=== PATIENT | female | born 1970 | race Caucasian/White ===

== ENCOUNTER 2023-04-28 01:51 | Outpatient (RCR) | payer BC, SELFPAY ==
[2023-04-28 08:36] LABS: Abs Immature Grans 0.01 10^3/uL (0.0-0.06); Absolute Basophil Count 0.04 10^3/uL (0.0-0.2); Absolute Eosinophil Count 0.08 10^3/uL (0.0-0.7); Absolute Lymphocyte Count 2.18 10^3/uL (1.2-3.4); Absolute Neutrophil Count 2.63 10^3/uL (1.2-6.7); Basophils % 0.7; Eosinophils % 1.5; HCT 36.3 % (36.0-46.0); HGB 12.5 g/dL (11.2-15.7); Immature Grans % 0.2; Lymphocytes % 40.8; MCH 31.2 pg (27.0-33.0); MCHC 34.4 % (32.0-36.0); MCV 91 fL (80-95); MPV 10.1 fL (8.0-11.0); Monocytes % 7.5; Neutrophils % 49.3; Platelet Count 224 10^3/uL (130-400); RBC 4.01 10^6/uL (3.93-5.22); RDW-SD 43.4 fL; WBC 5.34 10^3/uL (4.4-10.8)
[2023-04-28 08:51] LABS: ALT 19 U/L (14-59); AST 15 U/L (15-37); Albumin 3.9 g/dL (3.4-5.0); Alkaline Phosphatase 54 U/L (46-116); Anion Gap 7.4 mmol/L (3-11); BUN 5 mg/dL (7-18); Bilirubin, Total 0.5 mg/dL (0.2-1.0); CO2 28.6 mmol/L (21.0-32.0); CREATININE 0.7 mg/dL (0.55-1.02); Calcium 9.3 mg/dL (8.5-10.1); Chloride 102 mmol/L (98-107); Glucose 96 mg/dL (74-106); Potassium 3.9 mmol/L (3.5-5.1); Sodium 138 mmol/L (136-145); Total Protein 7.5 g/dL (6.4-8.2)
[2023-04-28] MEDS: Normal Saline Flush 10 ML SYR IVP (09:26)
[2023-04-30 11:32] LABS: Cancer Ag 15-3 <8.0 U/mL (<30)
== END 2023-05-03 23:59 | disposition home or self-care (01) ==
LOC: INF 01:51
PROVIDERS: PCP Naturopath; Visit Provider Internal Medicine Hematology & Oncology
DX: C50.912 Malignant neoplasm of unspecified site of left female breast (principal)
CPT/HCPCS: 36591; 80053; 86304; 85025; 86300; 86301

== ENCOUNTER 2023-05-19 03:36 | Outpatient (RCR) | payer BC, SELFPAY ==
[2023-05-19] MEDS: Normal Saline Flush 10 ML SYR IVP (09:29)
[2023-05-19 09:54] LABS: Abs Immature Grans 0.01 10^3/uL (0.0-0.06); Absolute Basophil Count 0.05 10^3/uL (0.0-0.2); Absolute Eosinophil Count 0.04 10^3/uL (0.0-0.7); Absolute Lymphocyte Count 1.79 10^3/uL (1.2-3.4); Absolute Monocyte Count 0.55 10^3/uL (0.1-0.8); Absolute Neutrophil Count 3.49 10^3/uL (1.2-6.7); Basophils % 0.8; Eosinophils % 0.7; HCT 33.8 % (36.0-46.0); HGB 11.4 g/dL (11.2-15.7); Immature Grans % 0.2; Lymphocytes % 30.2; MCH 31.5 pg (27.0-33.0); MCHC 33.7 % (32.0-36.0); MCV 93 fL (80-95); MPV 9.5 fL (8.0-11.0); Monocytes % 9.3; Neutrophils % 58.8; Platelet Count 326 10^3/uL (130-400); RBC 3.62 10^6/uL (3.93-5.22); RDW 13.6 % (11.7-14.6); RDW-SD 46.2 fL; WBC 5.93 10^3/uL (4.4-10.8)
[2023-05-19 10:19] LABS: ALT 28 U/L (14-59); AST 20 U/L (15-37); Albumin 3.7 g/dL (3.4-5.0); Alkaline Phosphatase 72 U/L (46-116); Anion Gap 6.7 mmol/L (3-11); BUN 8 mg/dL (7-18); Bilirubin, Total 0.5 mg/dL (0.2-1.0); CO2 29.3 mmol/L (21.0-32.0); CREATININE 0.8 mg/dL (0.55-1.02); Calcium 9.3 mg/dL (8.5-10.1); Chloride 103 mmol/L (98-107); Estimated GFR 89.71 (mL/min/1.73m2); Glucose 95 mg/dL (74-106); Potassium 4.1 mmol/L (3.5-5.1); Sodium 139 mmol/L (136-145); Total Protein 7.2 g/dL (6.4-8.2)
[2023-05-20 17:55] LABS: Cancer Ag 15-3 9.8 U/mL (<30)
== END 2023-06-03 23:59 | disposition home or self-care (01) ==
LOC: INF 03:36
PROVIDERS: PCP Naturopath; Visit Provider Internal Medicine Hematology & Oncology
DX: C50.912 Malignant neoplasm of unspecified site of left female breast (principal)
CPT/HCPCS: 36591; 80053; 86300; 85025

== ENCOUNTER 2023-06-30 03:07 | Outpatient (RCR) | payer BC, SELFPAY ==
[2023-06-09] MEDS: Normal Saline Flush 10 ML SYR IVP (09:29)
[2023-06-09 09:32] LABS: Abs Immature Grans 0.01 10^3/uL (0.0-0.06); Absolute Basophil Count 0.04 10^3/uL (0.0-0.2); Absolute Eosinophil Count 0.03 10^3/uL (0.0-0.7); Absolute Monocyte Count 0.46 10^3/uL (0.1-0.8); Absolute Neutrophil Count 3.39 10^3/uL (1.2-6.7); Basophils % 0.8; Eosinophils % 0.6; HCT 30.7 % (36.0-46.0); HGB 10.6 g/dL (11.2-15.7); Immature Grans % 0.2; Lymphocytes % 26.3; MCH 32.5 pg (27.0-33.0); MCHC 34.5 % (32.0-36.0); MCV 94 fL (80-95); MPV 9.3 fL (8.0-11.0); Monocytes % 8.6; Neutrophils % 63.5; Platelet Count 216 10^3/uL (130-400); RBC 3.26 10^6/uL (3.93-5.22); RDW 14.1 % (11.7-14.6); RDW-SD 48.6 fL; WBC 5.33 10^3/uL (4.4-10.8)
[2023-06-09 09:47] LABS: ALT 27 U/L (14-59); AST 16 U/L (15-37); Albumin 3.5 g/dL (3.4-5.0); Alkaline Phosphatase 74 U/L (46-116); Anion Gap 2.4 mmol/L (3-11); BUN 9 mg/dL (7-18); Bilirubin, Total 0.4 mg/dL (0.2-1.0); CO2 29.6 mmol/L (21.0-32.0); CREATININE 0.7 mg/dL (0.55-1.02); Calcium 8.8 mg/dL (8.5-10.1); Chloride 104 mmol/L (98-107); Glucose 94 mg/dL (74-106); Potassium 3.9 mmol/L (3.5-5.1); Sodium 136 mmol/L (136-145); Total Protein 6.9 g/dL (6.4-8.2)
[2023-06-16 09:50] LABS: Cancer Ag 15-3 11 U/mL (<30)
[2023-06-30] MEDS: Normal Saline Flush 10 ML SYR IVP (08:10)
[2023-06-30 08:51] LABS: Abs Immature Grans 0.01 10^3/uL (0.0-0.06); Absolute Basophil Count 0.03 10^3/uL (0.0-0.2); Absolute Eosinophil Count 0.01 10^3/uL (0.0-0.7); Absolute Lymphocyte Count 1.53 10^3/uL (1.2-3.4); Absolute Monocyte Count 0.51 10^3/uL (0.1-0.8); Absolute Neutrophil Count 2.32 10^3/uL (1.2-6.7); Basophils % 0.7; Eosinophils % 0.2; HCT 31.6 % (36.0-46.0); HGB 10.8 g/dL (11.2-15.7); Immature Grans % 0.2; Lymphocytes % 34.7; MCH 32.8 pg (27.0-33.0); MCHC 34.2 % (32.0-36.0); MCV 96 fL (80-95); MPV 9.7 fL (8.0-11.0); Monocytes % 11.6; Neutrophils % 52.6; Platelet Count 211 10^3/uL (130-400); RBC 3.29 10^6/uL (3.93-5.22); RDW 14.5 % (11.7-14.6); WBC 4.41 10^3/uL (4.4-10.8)
[2023-06-30 09:06] LABS: ALT 31 U/L (14-59); AST 18 U/L (15-37); Albumin 3.5 g/dL (3.4-5.0); Alkaline Phosphatase 79 U/L (46-116); Anion Gap 8.4 mmol/L (3-11); BUN 9 mg/dL (7-18); Bilirubin, Total 0.4 mg/dL (0.2-1.0); CO2 27.6 mmol/L (21.0-32.0); CREATININE 0.7 mg/dL (0.55-1.02); Calcium 8.6 mg/dL (8.5-10.1); Chloride 104 mmol/L (98-107); Glucose 90 mg/dL (74-106); Potassium 3.9 mmol/L (3.5-5.1); Sodium 140 mmol/L (136-145); Total Protein 6.7 g/dL (6.4-8.2)
[2023-07-01 17:15] LABS: Cancer Ag 15-3 12 U/mL (<30)
== END 2023-07-02 23:59 | disposition home or self-care (01) ==
LOC: INF 03:07
PROVIDERS: PCP Naturopath; Visit Provider Internal Medicine Hematology & Oncology
DX: C50.912 Malignant neoplasm of unspecified site of left female breast (principal); Z45.2 Encounter for adjustment and management of vascular access device
CPT/HCPCS: 36591; 80053; 86300; 85025

== ENCOUNTER 2023-07-21 04:29 | Outpatient (RCR) | payer BC, SELFPAY ==
[2023-07-21] MEDS: Normal Saline Flush 10 ML SYR IVP (08:40)
[2023-07-21 08:52] LABS: Abs Immature Grans 0.01 10^3/uL (0.0-0.06); Absolute Basophil Count 0.02 10^3/uL (0.0-0.2); Absolute Eosinophil Count 0.01 10^3/uL (0.0-0.7); Absolute Lymphocyte Count 1.63 10^3/uL (1.2-3.4); Absolute Monocyte Count 0.52 10^3/uL (0.1-0.8); Absolute Neutrophil Count 1.94 10^3/uL (1.2-6.7); Basophils % 0.5; Eosinophils % 0.2; HCT 32.7 % (36.0-46.0); Immature Grans % 0.2; Lymphocytes % 39.5; MCH 33.2 pg (27.0-33.0); MCHC 33.6 % (32.0-36.0); MCV 99 fL (80-95); MPV 9.2 fL (8.0-11.0); Monocytes % 12.6; Platelet Count 183 10^3/uL (130-400); RBC 3.31 10^6/uL (3.93-5.22); RDW 14.1 % (11.7-14.6); RDW-SD 51.7 fL; WBC 4.13 10^3/uL (4.4-10.8)
[2023-07-21 09:07] LABS: ALT 34 U/L (14-59); AST 20 U/L (15-37); Albumin 3.6 g/dL (3.4-5.0); Alkaline Phosphatase 81 U/L (46-116); Anion Gap 8.1 mmol/L (3-11); BUN 9 mg/dL (7-18); Bilirubin, Total 0.5 mg/dL (0.2-1.0); CO2 27.9 mmol/L (21.0-32.0); CREATININE 0.7 mg/dL (0.55-1.02); Calcium 8.7 mg/dL (8.5-10.1); Chloride 103 mmol/L (98-107); Glucose 87 mg/dL (74-106); Sodium 139 mmol/L (136-145); Total Protein 6.8 g/dL (6.4-8.2)
[2023-07-22 18:22] LABS: Cancer Ag 15-3 14 U/mL (<30)
== END 2023-08-02 23:59 | disposition home or self-care (01) ==
LOC: INF 04:29
PROVIDERS: PCP Naturopath; Visit Provider Internal Medicine Hematology & Oncology
DX: C50.919 Malignant neoplasm of unspecified site of unspecified female breast (principal); Z45.2 Encounter for adjustment and management of vascular access device
CPT/HCPCS: 36591; 80053; 86300; 85025

== ENCOUNTER 2023-08-11 04:31 | Outpatient (RCR) | payer BC, SELFPAY ==
[2023-08-11] MEDS: Normal Saline Flush 10 ML SYR IVP (08:55)
[2023-08-11 09:03] LABS: Abs Immature Grans 0.01 10^3/uL (0.0-0.06); Absolute Basophil Count 0.03 10^3/uL (0.0-0.2); Absolute Eosinophil Count 0.01 10^3/uL (0.0-0.7); Absolute Lymphocyte Count 1.35 10^3/uL (1.2-3.4); Absolute Monocyte Count 0.44 10^3/uL (0.1-0.8); Absolute Neutrophil Count 1.47 10^3/uL (1.2-6.7); Basophils % 0.9; Eosinophils % 0.3; HCT 30.3 % (36.0-46.0); HGB 10.3 g/dL (11.2-15.7); Immature Grans % 0.3; Lymphocytes % 40.8; MCH 33.9 pg (27.0-33.0); MCV 100 fL (80-95); MPV 9.2 fL (8.0-11.0); Monocytes % 13.3; Neutrophils % 44.4; Platelet Count 158 10^3/uL (130-400); RBC 3.04 10^6/uL (3.93-5.22); RDW 14.1 % (11.7-14.6); RDW-SD 51.7 fL; WBC 3.31 10^3/uL (4.4-10.8)
[2023-08-11 09:23] LABS: ALT 44 U/L (14-59); AST 26 U/L (15-37); Albumin 3.4 g/dL (3.4-5.0); Alkaline Phosphatase 66 U/L (46-116); Anion Gap 7.3 mmol/L (3-11); BUN 7 mg/dL (7-18); Bilirubin, Total 0.3 mg/dL (0.2-1.0); CO2 27.7 mmol/L (21.0-32.0); CREATININE 0.7 mg/dL (0.55-1.02); Calcium 8.5 mg/dL (8.5-10.1); Chloride 104 mmol/L (98-107); Glucose 87 mg/dL (74-106); Potassium 3.8 mmol/L (3.5-5.1); Sodium 139 mmol/L (136-145); Total Protein 6.5 g/dL (6.4-8.2)
[2023-08-12 16:36] LABS: Cancer Ag 15-3 11 U/mL (<30)
== END 2023-09-01 23:59 | disposition home or self-care (01) ==
LOC: INF 04:31
PROVIDERS: PCP Naturopath; Visit Provider Internal Medicine Hematology & Oncology
DX: C50.919 Malignant neoplasm of unspecified site of unspecified female breast (principal)
CPT/HCPCS: 36591; 80053; 86300; 85025

== ENCOUNTER 2023-09-29 01:06 | Outpatient (RCR) | payer BC, SELFPAY ==
[2023-09-29] MEDS: Normal Saline Flush 10 ML SYR IVP (08:38)
[2023-09-29 08:49] LABS: Abs Immature Grans 0.01 10^3/uL (0.0-0.06); Absolute Basophil Count 0.03 10^3/uL (0.0-0.2); Absolute Eosinophil Count 0.12 10^3/uL (0.0-0.7); Absolute Lymphocyte Count 1.93 10^3/uL (1.2-3.4); Absolute Monocyte Count 0.33 10^3/uL (0.1-0.8); Absolute Neutrophil Count 1.71 10^3/uL (1.2-6.7); Basophils % 0.7 %; Eosinophils % 2.9 %; Immature Grans % 0.2 %; Lymphocytes % 46.7 %; MCH 34.5 pg (27.0-33.0); MCHC 34.4 % (32.0-36.0); MCV 100 fL (80-95); MPV 8.9 fL (8.0-11.0); Neutrophils % 41.5 %; Platelet Count 180 10^3/uL (130-400); RBC 3.19 10^6/uL (3.93-5.22); RDW 12.7 % (11.7-14.6); RDW-SD 47.1 fL; WBC 4.13 10^3/uL (4.4-10.8)
[2023-09-29 09:11] LABS: ALT 59 U/L (14-59); AST 28 U/L (15-37); Albumin 3.5 g/dL (3.4-5.0); Alkaline Phosphatase 56 U/L (46-116); Anion Gap 8.1 mmol/L (3-11); BUN 7 mg/dL (7-18); Bilirubin, Total 0.3 mg/dL (0.2-1.0); CO2 26.9 mmol/L (21.0-32.0); CREATININE 0.7 mg/dL (0.55-1.02); Chloride 104 mmol/L (98-107); Estimated GFR 104.65 (mL/min/1.73m2); Glucose 94 mg/dL (74-106); Sodium 139 mmol/L (136-145); Total Protein 6.7 g/dL (6.4-8.2)
[2023-09-29 09:17] LABS: Calcium 8.6 mg/dL (8.5-10.1)
== END 2023-10-02 23:59 | disposition home or self-care (01) ==
LOC: INF 01:06
PROVIDERS: PCP Naturopath; Visit Provider Internal Medicine Hematology & Oncology
DX: C50.919 Malignant neoplasm of unspecified site of unspecified female breast (principal)
CPT/HCPCS: 36591; 80053; 85025

== ENCOUNTER 2023-10-14 11:42 | Outpatient (CLI) | payer BC, SELFPAY ==
[2023-10-14 10:55] LABS: Kit/Specimen SENT
== END 2023-10-14 11:43 | disposition home or self-care (01) ==
LOC: LBO 11:43
PROVIDERS: PCP Naturopath; Visit Provider Naturopath
DX: Z00.00 Encounter for general adult medical examination without abnormal findings (principal)
CPT/HCPCS: 36415

== ENCOUNTER 2023-10-20 04:54 | Outpatient (RCR) | payer BC, SELFPAY ==
[2023-10-20] MEDS: Normal Saline Flush 10 ML SYR IVP (07:55)
[2023-10-20 08:24] LABS: Abs Immature Grans 0.01 10^3/uL (0.0-0.06); Absolute Basophil Count 0.02 10^3/uL (0.0-0.2); Absolute Eosinophil Count 0.09 10^3/uL (0.0-0.7); Absolute Lymphocyte Count 1.41 10^3/uL (1.2-3.4); Absolute Monocyte Count 0.28 10^3/uL (0.1-0.8); Absolute Neutrophil Count 1.56 10^3/uL (1.2-6.7); Basophils % 0.6 %; Eosinophils % 2.7 %; HCT 32.6 % (36.0-46.0); HGB 11.2 g/dL (11.2-15.7); Immature Grans % 0.3 %; Lymphocytes % 41.8 %; MCH 33.8 pg (27.0-33.0); MCHC 34.4 % (32.0-36.0); MCV 99 fL (80-95); MPV 9.7 fL (8.0-11.0); Monocytes % 8.3 %; Neutrophils % 46.3 %; Platelet Count 178 10^3/uL (130-400); RBC 3.31 10^6/uL (3.93-5.22); RDW 12.1 % (11.7-14.6); RDW-SD 44.2 fL; WBC 3.37 10^3/uL (4.4-10.8)
[2023-10-20 08:41] LABS: ALT 41 U/L (14-59); AST 21 U/L (15-37); Albumin 3.5 g/dL (3.4-5.0); Alkaline Phosphatase 50 U/L (46-116); Anion Gap 7.6 mmol/L (3-11); BUN 10 mg/dL (7-18); Bilirubin, Total 0.3 mg/dL (0.2-1.0); CO2 29.4 mmol/L (21.0-32.0); CREATININE 0.7 mg/dL (0.55-1.02); Calcium 8.6 mg/dL (8.5-10.1); Chloride 104 mmol/L (98-107); Estimated GFR 104.65 (mL/min/1.73m2); Glucose 94 mg/dL (74-106); Potassium 3.9 mmol/L (3.5-5.1); Sodium 141 mmol/L (136-145); Total Protein 6.8 g/dL (6.4-8.2)
== END 2023-11-01 23:59 | disposition home or self-care (01) ==
LOC: INF 04:54
PROVIDERS: PCP Naturopath; Visit Provider Internal Medicine Hematology & Oncology
DX: C50.919 Malignant neoplasm of unspecified site of unspecified female breast (principal)
CPT/HCPCS: 36591; 80053; 85025

== ENCOUNTER 2023-12-01 03:06 | Outpatient (RCR) | payer BC, SELFPAY ==
[2023-11-10] MEDS: Normal Saline Flush 10 ML SYR IVP (12:10)
[2023-11-10 12:38] LABS: Abs Immature Grans 0.02 10^3/uL (0.0-0.06); Absolute Basophil Count 0.02 10^3/uL (0.0-0.2); Absolute Monocyte Count 0.41 10^3/uL (0.1-0.8); Basophils % 0.4 %; Eosinophils % 2.2 %; HCT 31.4 % (36.0-46.0); HGB 10.9 g/dL (11.2-15.7); Immature Grans % 0.4 %; Lymphocytes % 28.6 %; MCH 33.3 pg (27.0-33.0); MCHC 34.7 % (32.0-36.0); MCV 96 fL (80-95); MPV 9.1 fL (8.0-11.0); Neutrophils % 59.4 %; Platelet Count 160 10^3/uL (130-400); RBC 3.27 10^6/uL (3.93-5.22); RDW 11.7 % (11.7-14.6); RDW-SD 41.5 fL; WBC 4.55 10^3/uL (4.4-10.8)
[2023-11-10 12:42] LABS: ESR 14 mm/hr (0-30)
[2023-11-10 13:03] LABS: Hemoglobin A1C 5.3 % (<5.7)
[2023-11-10 13:24] LABS: ALT 60 U/L (14-59); AST 28 U/L (15-37); Albumin 3.5 g/dL (3.4-5.0); Alkaline Phosphatase 55 U/L (46-116); BUN 9 mg/dL (7-18); Bilirubin, Total 0.25 mg/dL (0.2-1.0); CREATININE 0.7 mg/dL (0.55-1.02); Calcium 8.7 mg/dL (8.5-10.1); Calculated LDL 97 mg/dL (<100); Chloride 103 mmol/L (98-107); Cholesterol 188 mg/dL (<200); Estimated GFR 104.65 (mL/min/1.73m2); Glucose 109 mg/dL (74-106); HDL Cholesterol 77 mg/dL (40-60); Potassium 3.7 mmol/L (3.5-5.1); Sodium 140 mmol/L (136-145); TSH 0.72 uIU/Ml (0.36-3.74); Total Protein 6.9 g/dL (6.4-8.2); Triglyceride 73 mg/dL (<150); Vitamin B12 552 pg/mL (193-986); Vitamin D 25 Total 48.1 ng/mL (30-100)
[2023-11-10 13:49] LABS: LDH 149 U/L (81-234)
[2023-11-10 22:46] LABS: CRP, High Sensitivity 0.81 mg/L (See Note)
[2023-11-10 23:03] LABS: T3,Free 3.3 pg/mL (2.8-5.3)
[2023-11-11 19:35] LABS: C-Peptide 4.2 ng/mL (1.1 - 4.4)
[2023-11-12 12:03] LABS: Cancer Ag 15-3 <8.0 U/mL (<30)
[2023-12-01] MEDS: Normal Saline Flush 10 ML SYR IVP (08:27)
[2023-12-01 09:01] LABS: Abs Immature Grans 0.01 10^3/uL (0.0-0.06); Absolute Basophil Count 0.02 10^3/uL (0.0-0.2); Absolute Eosinophil Count 0.08 10^3/uL (0.0-0.7); Absolute Lymphocyte Count 1.36 10^3/uL (1.2-3.4); Absolute Monocyte Count 0.34 10^3/uL (0.1-0.8); Absolute Neutrophil Count 1.74 10^3/uL (1.2-6.7); Basophils % 0.6 %; Eosinophils % 2.3 %; HCT 32.1 % (36.0-46.0); Immature Grans % 0.3 %; Lymphocytes % 38.3 %; MCH 32.2 pg (27.0-33.0); MCHC 34.3 % (32.0-36.0); MCV 94 fL (80-95); MPV 9.4 fL (8.0-11.0); Monocytes % 9.6 %; Neutrophils % 48.9 %; Platelet Count 179 10^3/uL (130-400); RBC 3.42 10^6/uL (3.93-5.22); RDW 11.7 % (11.7-14.6); RDW-SD 40.3 fL; WBC 3.55 10^3/uL (4.4-10.8)
[2023-12-01 09:13] LABS: ALT 27 U/L (14-59); AST 14 U/L (15-37); Albumin 3.5 g/dL (3.4-5.0); Alkaline Phosphatase 51 U/L (46-116); Anion Gap 7.4 mmol/L (3-11); BUN 10 mg/dL (7-18); Bilirubin, Total 0.29 mg/dL (0.2-1.0); CO2 29.6 mmol/L (21.0-32.0); CREATININE 0.8 mg/dL (0.55-1.02); Calcium 8.5 mg/dL (8.5-10.1); Chloride 106 mmol/L (98-107); Estimated GFR 89.15 (mL/min/1.73m2); Glucose 87 mg/dL (74-106); Potassium 3.8 mmol/L (3.5-5.1); Sodium 143 mmol/L (136-145); Total Protein 6.7 g/dL (6.4-8.2)
== END 2023-12-02 23:59 | disposition home or self-care (01) ==
LOC: INF 03:06
PROVIDERS: PCP Naturopath; Visit Provider Internal Medicine Hematology & Oncology
DX: Z45.2 Encounter for adjustment and management of vascular access device (principal); C50.912 Malignant neoplasm of unspecified site of left female breast; M81.0 Age-related osteoporosis without current pathological fracture; R53.83 Other fatigue
CPT/HCPCS: 36591; 80053; 80061; 82306; 85652; 86141; 86300; 82607; 83036; 83615; 84439; 84443; 84481; 84681; 85025

== ENCOUNTER 2023-12-29 02:34 | Outpatient (RCR) | payer BC, SELFPAY ==
[2023-12-22] MEDS: Normal Saline Flush 10 ML SYR IVP (11:31)
[2023-12-22 12:22] LABS: Abs Immature Grans 0.02 10^3/uL (0.0-0.06); Absolute Basophil Count 0.02 10^3/uL (0.0-0.2); Absolute Eosinophil Count 0.06 10^3/uL (0.0-0.7); Absolute Lymphocyte Count 1.45 10^3/uL (1.2-3.4); Absolute Monocyte Count 0.68 10^3/uL (0.1-0.8); Absolute Neutrophil Count 4.54 10^3/uL (1.2-6.7); Basophils % 0.3 %; Eosinophils % 0.9 %; HCT 33.8 % (36.0-46.0); HGB 11.6 g/dL (11.2-15.7); Immature Grans % 0.3 %; Lymphocytes % 21.4 %; MCH 32.5 pg (27.0-33.0); MCHC 34.3 % (32.0-36.0); MCV 95 fL (80-95); MPV 9.3 fL (8.0-11.0); Neutrophils % 67.1 %; Platelet Count 210 10^3/uL (130-400); RBC 3.57 10^6/uL (3.93-5.22); RDW 11.9 % (11.7-14.6); WBC 6.77 10^3/uL (4.4-10.8)
[2023-12-22 12:39] LABS: ALT 24 U/L (14-59); AST 15 U/L (15-37); Albumin 3.6 g/dL (3.4-5.0); Alkaline Phosphatase 63 U/L (46-116); Anion Gap 7.4 mmol/L (3-11); BUN 9 mg/dL (7-18); Bilirubin, Total 0.29 mg/dL (0.2-1.0); CO2 28.6 mmol/L (21.0-32.0); CREATININE 0.8 mg/dL (0.55-1.02); Calcium 9.3 mg/dL (8.5-10.1); Chloride 102 mmol/L (98-107); Estimated GFR 89.15 (mL/min/1.73m2); Glucose 104 mg/dL (74-106); Potassium 4.1 mmol/L (3.5-5.1); Sodium 138 mmol/L (136-145); Total Protein 7.3 g/dL (6.4-8.2)
== END 2024-01-02 23:59 | disposition home or self-care (01) ==
LOC: INF 02:34
PROVIDERS: PCP Naturopath; Visit Provider Internal Medicine Hematology & Oncology
DX: C50.919 Malignant neoplasm of unspecified site of unspecified female breast (principal)
CPT/HCPCS: 36591; 80053; 85025

== ENCOUNTER 2024-01-19 01:40 | Outpatient (RCR) | payer BC, SELFPAY ==
[2024-01-19] MEDS: Normal Saline Flush 10 ML SYR IVP (10:12)
[2024-01-19 10:24] LABS: Abs Immature Grans 0.02 10^3/uL (0.0-0.06); Absolute Basophil Count 0.02 10^3/uL (0.0-0.2); Absolute Eosinophil Count 0.05 10^3/uL (0.0-0.7); Absolute Lymphocyte Count 1.53 10^3/uL (1.2-3.4); Absolute Monocyte Count 0.33 10^3/uL (0.1-0.8); Absolute Neutrophil Count 2.54 10^3/uL (1.2-6.7); Basophils % 0.4 %; Eosinophils % 1.1 %; HCT 32.8 % (36.0-46.0); HGB 11.3 g/dL (11.2-15.7); Immature Grans % 0.4 %; Lymphocytes % 34.1 %; MCH 32.8 pg (27.0-33.0); MCHC 34.5 % (32.0-36.0); MCV 95 fL (80-95); MPV 8.8 fL (8.0-11.0); Monocytes % 7.3 %; Neutrophils % 56.7 %; Platelet Count 179 10^3/uL (130-400); RBC 3.45 10^6/uL (3.93-5.22); RDW 12.5 % (11.7-14.6); RDW-SD 43.6 fL; WBC 4.49 10^3/uL (4.4-10.8)
[2024-01-19 10:39] LABS: ALT 28 U/L (14-59); AST 18 U/L (15-37); Albumin 3.5 g/dL (3.4-5.0); Alkaline Phosphatase 60 U/L (46-116); Anion Gap 7.1 mmol/L (3-11); BUN 6 mg/dL (7-18); Bilirubin, Total 0.37 mg/dL (0.2-1.0); CO2 28.9 mmol/L (21.0-32.0); CREATININE 0.8 mg/dL (0.55-1.02); Calcium 8.5 mg/dL (8.5-10.1); Chloride 102 mmol/L (98-107); Estimated GFR 89.15 (mL/min/1.73m2); Glucose 89 mg/dL (74-106); Potassium 4.1 mmol/L (3.5-5.1); Sodium 138 mmol/L (136-145); Total Protein 6.9 g/dL (6.4-8.2)
== END 2024-02-01 23:59 | disposition home or self-care (01) ==
LOC: INF 01:40
PROVIDERS: PCP Naturopath; Visit Provider Internal Medicine Hematology & Oncology
DX: C50.919 Malignant neoplasm of unspecified site of unspecified female breast (principal)
CPT/HCPCS: 36591; 80053; 85025

== ENCOUNTER 2024-03-01 01:51 | Outpatient (RCR) | payer BC, SELFPAY ==
[2024-02-09] MEDS: Normal Saline Flush 10 ML SYR IVP (10:18)
[2024-02-09 10:33] LABS: Abs Immature Grans 0.01 10^3/uL (0.0-0.06); Absolute Basophil Count 0.03 10^3/uL (0.0-0.2); Absolute Eosinophil Count 0.08 10^3/uL (0.0-0.7); Absolute Lymphocyte Count 1.14 10^3/uL (1.2-3.4); Absolute Monocyte Count 0.31 10^3/uL (0.1-0.8); Absolute Neutrophil Count 2.03 10^3/uL (1.2-6.7); Basophils % 0.8 %; Eosinophils % 2.2 %; HGB 9.8 g/dL (11.2-15.7); Immature Grans % 0.3 %; Lymphocytes % 31.7 %; MCH 32.5 pg (27.0-33.0); MCHC 33.8 % (32.0-36.0); MCV 96 fL (80-95); MPV 8.8 fL (8.0-11.0); Monocytes % 8.6 %; Neutrophils % 56.4 %; Platelet Count 256 10^3/uL (130-400); RBC 3.02 10^6/uL (3.93-5.22); RDW 12.7 % (11.7-14.6); RDW-SD 43.9 fL
[2024-02-09 10:53] LABS: ALT 18 U/L (14-59); AST 13 U/L (15-37); Alkaline Phosphatase 74 U/L (46-116); Anion Gap 5.5 mmol/L (3-11); BUN 7 mg/dL (7-18); Bilirubin, Total 0.24 mg/dL (0.2-1.0); CO2 29.5 mmol/L (21.0-32.0); CREATININE 0.7 mg/dL (0.55-1.02); Calcium 8.8 mg/dL (8.5-10.1); Chloride 105 mmol/L (98-107); Estimated GFR 104.65 (mL/min/1.73m2); Glucose 105 mg/dL (74-106); Potassium 4.1 mmol/L (3.5-5.1); Sodium 140 mmol/L (136-145)
[2024-03-01] MEDS: Normal Saline Flush 10 ML SYR IVP (09:50)
[2024-03-01 10:15] LABS: Abs Immature Grans 0.01 10^3/uL (0.0-0.06); Absolute Basophil Count 0.02 10^3/uL (0.0-0.2); Absolute Eosinophil Count 0.07 10^3/uL (0.0-0.7); Absolute Lymphocyte Count 1.28 10^3/uL (1.2-3.4); Absolute Monocyte Count 0.27 10^3/uL (0.1-0.8); Absolute Neutrophil Count 1.85 10^3/uL (1.2-6.7); Basophils % 0.6 %; HCT 32.6 % (36.0-46.0); Immature Grans % 0.3 %; Lymphocytes % 36.6 %; MCH 32.2 pg (27.0-33.0); MCHC 33.7 % (32.0-36.0); MCV 95 fL (80-95); MPV 9.6 fL (8.0-11.0); Monocytes % 7.7 %; Neutrophils % 52.8 %; Platelet Count 160 10^3/uL (130-400); RBC 3.42 10^6/uL (3.93-5.22); RDW 13.2 % (11.7-14.6); RDW-SD 46.2 fL
[2024-03-01 10:34] LABS: ALT 19 U/L (14-59); AST 14 U/L (15-37); Albumin 3.5 g/dL (3.4-5.0); Alkaline Phosphatase 56 U/L (46-116); Anion Gap 8.5 mmol/L (3-11); BUN 11 mg/dL (7-18); Bilirubin, Total 0.36 mg/dL (0.2-1.0); CO2 29.5 mmol/L (21.0-32.0); CREATININE 0.8 mg/dL (0.55-1.02); Chloride 104 mmol/L (98-107); Estimated GFR 89.15 (mL/min/1.73m2); Glucose 87 mg/dL (74-106); Sodium 142 mmol/L (136-145); Total Protein 7.1 g/dL (6.4-8.2)
== END 2024-03-03 23:59 | disposition home or self-care (01) ==
LOC: INF 01:51
PROVIDERS: PCP Naturopath; Visit Provider Internal Medicine Hematology & Oncology
DX: C50.919 Malignant neoplasm of unspecified site of unspecified female breast (principal); Z45.2 Encounter for adjustment and management of vascular access device
CPT/HCPCS: 36591; 80053; 96523; 85025

== ENCOUNTER 2024-03-22 02:45 | Outpatient (RCR) | payer BC, SELFPAY ==
[2024-03-22 10:40] LABS: Abs Immature Grans 0.01 10^3/uL (0.0-0.06); Absolute Basophil Count 0.02 10^3/uL (0.0-0.2); Absolute Lymphocyte Count 1.34 10^3/uL (1.2-3.4); Absolute Monocyte Count 0.34 10^3/uL (0.1-0.8); Absolute Neutrophil Count 2.64 10^3/uL (1.2-6.7); Basophils % 0.4 %; Eosinophils % 2.2 %; HCT 33.2 % (36.0-46.0); HGB 11.3 g/dL (11.2-15.7); Immature Grans % 0.2 %; Lymphocytes % 30.1 %; MCH 32.1 pg (27.0-33.0); MCV 94 fL (80-95); MPV 9.3 fL (8.0-11.0); Monocytes % 7.6 %; Neutrophils % 59.5 %; Platelet Count 171 10^3/uL (130-400); RBC 3.52 10^6/uL (3.93-5.22); RDW 12.7 % (11.7-14.6); RDW-SD 44.2 fL; WBC 4.45 10^3/uL (4.4-10.8)
[2024-03-22 11:18] LABS: ALT 20 U/L (14-59); AST 14 U/L (15-37); Albumin 3.6 g/dL (3.4-5.0); Alkaline Phosphatase 57 U/L (46-116); Anion Gap 8.2 mmol/L (3-11); BUN 8 mg/dL (7-18); CO2 28.8 mmol/L (21.0-32.0); CREATININE 0.8 mg/dL (0.55-1.02); Calcium 8.8 mg/dL (8.5-10.1); Chloride 103 mmol/L (98-107); Estimated GFR 89.15 (mL/min/1.73m2); Glucose 93 mg/dL (74-106); Potassium 4.2 mmol/L (3.5-5.1); Sodium 140 mmol/L (136-145); Total Protein 7.1 g/dL (6.4-8.2)
[2024-03-22] MEDS: Normal Saline Flush 10 ML SYR IVP (11:46)
== END 2024-04-02 23:59 | disposition home or self-care (01) ==
LOC: INF 02:45
PROVIDERS: PCP Naturopath; Visit Provider Internal Medicine Hematology & Oncology
DX: C50.919 Malignant neoplasm of unspecified site of unspecified female breast (principal); Z45.2 Encounter for adjustment and management of vascular access device
CPT/HCPCS: 36591; 80053; 85025

== ENCOUNTER 2024-04-14 03:04 | Outpatient (RCR) | payer BC, SELFPAY ==
[2024-04-14 09:15] LABS: Abs Immature Grans 0.02 10^3/uL (0.0-0.06); Absolute Basophil Count 0.03 10^3/uL (0.0-0.2); Absolute Eosinophil Count 0.08 10^3/uL (0.0-0.7); Absolute Lymphocyte Count 1.12 10^3/uL (1.2-3.4); Absolute Monocyte Count 0.33 10^3/uL (0.1-0.8); Absolute Neutrophil Count 2.43 10^3/uL (1.2-6.7); Basophils % 0.7 %; HCT 32.2 % (36.0-46.0); HGB 11.1 g/dL (11.2-15.7); Immature Grans % 0.5 %; Lymphocytes % 27.9 %; MCH 32.3 pg (27.0-33.0); MCHC 34.5 % (32.0-36.0); MCV 94 fL (80-95); MPV 9.2 fL (8.0-11.0); Monocytes % 8.2 %; Neutrophils % 60.7 %; Platelet Count 191 10^3/uL (130-400); RBC 3.44 10^6/uL (3.93-5.22); RDW 13.1 % (11.7-14.6); RDW-SD 44.3 fL; WBC 4.01 10^3/uL (4.4-10.8)
[2024-04-14 09:30] LABS: ALT 13 U/L (14-59); AST 13 U/L (15-37); Albumin 3.6 g/dL (3.4-5.0); Alkaline Phosphatase 55 U/L (46-116); Anion Gap 6.3 mmol/L (3-11); BUN 10 mg/dL (7-18); Bilirubin, Total 0.36 mg/dL (0.2-1.0); CO2 29.7 mmol/L (21.0-32.0); CREATININE 0.8 mg/dL (0.55-1.02); Calcium 9.1 mg/dL (8.5-10.1); Chloride 101 mmol/L (98-107); Estimated GFR 89.15 (mL/min/1.73m2); Glucose 94 mg/dL (74-106); Sodium 137 mmol/L (136-145); Total Protein 6.9 g/dL (6.4-8.2)
== END 2024-05-03 23:59 | disposition home or self-care (01) ==
LOC: INF 03:04
PROVIDERS: Nurse Practitioner Family; PCP Naturopath; Visit Provider Internal Medicine Hematology & Oncology
DX: C50.919 Malignant neoplasm of unspecified site of unspecified female breast (principal); Z45.2 Encounter for adjustment and management of vascular access device
CPT/HCPCS: 36591; 80053; 85025

== ENCOUNTER 2024-05-06 01:14 | Outpatient (RCR) | payer BC, SELFPAY ==
--- OUTSIDE RECORDS SUMMARY | 2024-05-06 01:16 | XMS_ITS | Referral Summary ---
Author Organization [facility] Address [address] [place] [address] Care Team Providers Care Director Of Consumer Marketing Name Role Phone Akua Delaney EMMY Primary Care Provider [phone] Social History Tobacco Use Types Packs/Day Years Used Date Smoking Tobacco: Never Assessed Comments Unknown Sex and Gender Information Value Date Recorded Sex Assigned at Not on file Legal Sex Female 18:06 EDT Gender Identity Not on file Sexual Orientation Not on file Plan of Treatment Not on file Insurance [facility] Care Teams Director Of Consumer Marketing Relationship Specialty Start Date End Date Akua Delaney ND [address] [address] PCP - General 02/01/23
--- OUTSIDE RECORDS SUMMARY | 2024-05-06 01:16 | XMS_ITS | Encounter Summary ---
Author Organization [facility] Address [address] [place] [address] Care Team Providers Care Lubricating Specialist Name Role Phone Akua Delaney ND Primary Care Provider Encounter Details Date Type Department Care Team (Late st Contact Info) Description 03/12/2023 Lab Requisition [facility] Pathology & Laboratory Medicine - [facility] [address] [place] [address] Akua Delaney ND [address] [facility] [address] [place], [place] [id number] Encounter for other general examination Social History Tobacco Use Types Packs/Day Years Used Date Smoking Tobacco: Never Assessed Comments Unknown Sex and Gender Information Value Date Recorded Sex Assigned at Not on file Legal Sex Female 18:06 EDT Gender Identity Not on file Sexual Orientation Not on file documented as of this encounter Plan of Treatment Not on file documented as of this encounter Procedures Procedure Name Priority Date/Time Associated Diagnosis Comments SURGICAL PATHOLOGY Today 03/12/2023 14 :30 EST documented in this encounter Results * SURGICAL PATHOLOGY (03/12/2023 14:30 EST) Ancillary Studies Addendum ESTROGEN AND PROGESTERONE RECEPTOR ASSAY RESULTS Tissue submitted: Paraffin embedded tissue block labelled [id number] from [facility] Immunohistochemical assays for estrogen receptors (SP1, [place]) and progesterone receptors (16, Leica) have been performed on this specimen. Intranuclear receptor complexes were visualized on tissue sections using an HRP polymer immunohistochemical technique. This assay is intended for paraffin-embedded tissue fixed in 10% neutral buffered formalin for 6-72 hours. Results are reported as negative (<1% nuclear staining) or positive with the proportion of positive cells noted. Estrogen receptor expression in <5% of tumor cells may not have a strong interaction with estrogen receptor modulators such as Tamoxifen. Reference: ASCO-CAP Guideline Recommendations for IHC testing of ER and [place]. J Clin Oncol 2010;28:0641-1598. NOTE: One or more of the reagents used in immunoperoxidase testing in this case may not have been cleared or approved by the U.S. Food and Drug Administration (FDA). The FDA has determined that such clearance or approval is not necessary. These tests are used for clinical purposes. They should not be regarded as investigational or for research. These reagents' performance characteristics have been determined by [facility] and/or by the referring laboratory. The positive and negative controls worked appropriately. If immunoperoxidase staining has been performed on alcohol fixed cytology specimens, which has not been fully validated, the assays should be interpreted with caution and correlated with clinical data. This laboratory is certified under the Clinical Laboratory Improvement Amendments of 1988 (CLIA-88) as qualified to perform high complexity clinical laboratory testing. INTERPRETATION: A. BREAST, LEFT, 4 O'CLOCK, 2 CM FROM NIPPLE, LARGE CORE NEEDLE BIOPSY: - Adenocarcinoma, invasive. - Positive for estrogen receptors (in 90% of tumor cells). - Nuclear staining intensity: Moderate to strong. - Negative for progesterone receptors (in less than 1% of tumor cells). - Nuclear staining intensity: Moderate. COMMENT: Cold ischemic time and total formalin fixation time appropriate: Yes HER2 RECEPTOR ASSAY RESULTS Tissue submitted: Paraffin embedded tissue block labelled [id number] from [facility] Fixative: Formalin This immunohistochemical assay is intended to paraffin-embedded tissue fixed in 10% neutral buffered formalin for 6-72 hours; 18-24 hour fixation with maximum tissue thickness of 3-4 millimeters is recommended for best assay performance. Time from biopsy to placement in formalin (cold ischemic time) should be minimized to less than one hour. Her2 should not be performed on alcohol fixed tissues. The assay was performed under appropriate conditions according to the special collections librarian's instructions with appropriate assay and tissue controls using an Anti-Her2 (4B5) Rabbit Monoclonal Antibody ([place]). Her2 Scoring Guidelines (invasive tumor component only) 0 negative No staining or membrane staining in less than 10% of cells 1+ negative Faint partial membrane staining in more than 10% of cells 2+ weakly positive Moderate complete membrane staining in more than 10% of cells 3+ positive Strong complete membrane staining in more than 10% of cells Reference: ASCO-CAP Recommendations for Her2 Testing. J Clin Oncol 2018; epub (www.jco.org October 20, 2017) *FDA statement Assay results Her2 IHC Score: 3+ Tumor location: Left Breast ; 4 o'clock Cold ischemic time and total formalin fixative time appropriate: Yes Cells with complete membrane staining: Greater than 90% Membrane staining intensity: Strong Partial membrane staining: N/A Cytoplasmic staining: Moderate Staining pattern: Homogeneous Staining in benign epithelium: N/A The Her2 assay performed is interpreted as: POSITIVE 03/17/2023 15:01 [facility] Addendum electronically signed by Mannie Nava MD on 03/17/2023 at 1501 Note to Patient The following pathology results have been interpreted by your pathologist and may be available to you before your health provider has had the opportunity to review them. Please allow time for your provider to receive these results and explore management options, if applicable. 03/17/2023 15:01 [facility] Final Diagnosis A. BREAST, LEFT, 4 O'CLOCK, 2 CM FROM NIPPLE, LARGE CORE NEEDLE BIOPSY: - Adenocarcinoma, invasive, ductal type, nuclear grade 2 and 3. See comment. - Ductal carcinoma in situ (DCIS), solid pattern, nuclear grade 2. 03/17/2023 15:01 [facility] Diagnosis Comment The needle core biopsy confirms the presence of an invasive adenocarcinoma. The tumor does not form any appreciable tubules, is composed of cells with nuclear grade 2 and 3 nuclei, and has a high mitotic rate (45 mitoses per 10 high-power sullivan; HPF equals 0.54 mm). These findings are compatible with a poorly differentiated carcinoma; final grade is deferred to any future excision biopsy. Estrogen and progesterone receptor assays and Her2 studies have been ordered and results will be issued in an Addendum. 03/17/2023 15:01 [facility] Attestation By the signature below, the attending physician certifies that they have 1) personally conducted a gross and/or microscopic examination of the described specimen(s), and/or personally interpreted the results of laboratory testing of the described specimen(s), and 2) personally rendered or confirmed the above diagnosis. 03/17/2023 15:01 [facility] at 1455 Clinical History 0.9 cm mildly lobular mass, L breast 4 o'clock 2 cm from nipple 03/17/2023 15:01 EST [facility] Gross Description A. Received in formalin labelled with proper patient identification (initials M, L) and LT breast 4 o'clock, 2 cm from nipple are 3 yellow and white fibrofatty tissue cores (1.6 cm to 1.8 cm in length, and each 0.3 cm in diameter). Entirely submitted in A1-A2. Time removed from patient: 14:30 hours 03/12/2023 Time placed in formalin: 14:30 hours 03/12/2023 Time out of formalin: 19:00 hours 03/13/2023 OTONIEL BECKFORD(ASCP) 03/13/2023 8:35 03/17/2023 15:01 EST [facility] Performing Lab [facility] 03/17/2023 15:01 EST [facility] Scanned Images 03/17/2023 15:01 EST [facility] Tissue BREAST STRUCTURE / Unknown 03/12/2023 14:30 EST 03/13/2023 8:11 EST us Akua Delaney ND PATHOLOGY ORDERABLES Edited R esult - Final [facility] [address] [place] [address] documented in this encounter Visit Diagnoses Diagnosis Encounter for other general examination documented in this encounter Care Teams Lubricating Specialist Relationship Specialty Start Date End Date Akua Delaney ND [address] [facility] [address] [place] [address] PCP - General 02/01/23 documented as of this encounter
--- OUTSIDE RECORDS SUMMARY | 2024-05-06 01:16 | XMS_ITS | Clinical Summary ---
Author Organization [facility] Address [address] [place] [address] Care Team Providers Care Fruit Harvest Machine Operator Name Role Phone Akua Delaney ND Primary Care Provider [phone] Social History Tobacco Use Types Packs/Day Years Used Date Smoking Tobacco: Never Assessed Comments Unknown Sex and Gender Information Value Date Recorded Sex Assigned at Not on file Legal Sex Female 18:06 EDT Gender Identity Not on file Sexual Orientation Not on file Plan of Treatment Health Maintenance Due Date Last Done Comments Hepatitis C Screen 1970 Hepatitis B Vaccine (1 of 3 - 19+ 3-dose series) 09/28 COVID-19 Vaccine (2023- season) 2024 Insurance [facility] Address: [address] [address] Care Teams Fruit Harvest Machine Operator Relationship Specialty Start Date End Date Akua Delaney ND [address] [address] PCP - General 02/01/23
--- OUTSIDE RECORDS SUMMARY | 2024-05-06 01:16 | XMS_ITS | Encounter Summary ---
Author Organization [facility] Address [address] [place] [address] Care Team Providers Care Virtual Assistant For Advertisers Name Role Phone Akua Delaney ND Primary Care Provider [phone] Encounter Details Date Type Department Care Team (Late st Contact Info) Description 08/12/2022 Lab Requisition [facility] Pathology & Laboratory Medicine - [facility] [address] [place] [address] Akua Delaney ND 194 [facility] [address] [place], [place] [id number] Encounter for other general examination Social History [...] Procedure Name Priority Date/Time Associated Diagnosis Comments PAP TEST Today 08/12/2022 17:43 EDT HPV GENOTYPES 16 AND 18/45 Today 08/12/2022 17:43 EDT HPV DNA DETECTION WITH GENOTYPING, PCR Today 08/12/2022 17:43 EDT documented in this encounter Results * HPV GENOTYPES 16 AND 18/45 (08/12/2022 17:43 EDT) HPV High Risk type 16, PCR Negative Negative 08/26/2022 14:47 EDT [facility] HPV18/45 RNA (HPV18/45) Negative Negative 08/26/2022 14:47 EDT [facility] Papanicolaou smear specimen (specimen) CERVIX UTERI STRUCTURE / Unknown 08/12/2022 17:43 EDT 08/21/2022 14:11 EDT Akua Delanye ND MICROBIOLOGY - GENERAL ORDERA BLES Final Result Performing Organization Address [facility] Co de Phone Number [facility] [address] [place] [address] * (ABNORMAL) HUMAN PAPILLOMAVIRUS (HPV) DETECTION-HIGH RISK TYPES (08/12/2022 17:43 EDT) HPV other High Risk types, PCR Positive( A) Negative 08/26/2022 15:33 EDT [facility] Comment:E6 OR E7 mRNA from o ne or more types of HPV types 16,18,31,33,35,39,45,51,52,56,58,59,66, and 68 is detected by sixth grade teacher mediated amplification. High and intermediate risk HPV types are associated with most squamous intraepithelial lesions and cervical cancers. Papanicolaou smear specimen (specimen) CERVIX UTERI STRUCTURE / Unknown 08/12/2022 17:43 EDT 08/21/2022 14:11 EDT Akua Delaney ND MICROBIOLOGY - GENERAL ORDERA BLES Final Result Performing Organization Address [facility] Co de Phone Number [facility] [address] [place] [address] * PAP TEST (08/12/2022 17:43 EDT) Specimens A. Cervix and/or Endocervix , ThinPrep Imaging System with Manual Evaluation 08/26/2022 15:33 EDT [facility] Specimen Adequacy Satisfactory for Evaluation - transformation zone component present 08/26/2022 15:33 EDT [facility] General Categorization Negative for intraepithelial lesion or malignancy 08/26/2022 15:33 EDT [facility] Attestation . 08/26/2022 15:33 EDT [facility] at 1533 Clinical History SEE BELOW 08/27/19 15:33 EDT [facility] HPV The result for the Human Papillomavirus (HPV) Detection-High Risk Types is Positive . E6 OR E7 mRNA from one or more types of HPV types 16,18,31,33,35,39 ,45,51,52,56,58,5 9,66, and 68 is detected by sixth grade teacher mediated amplification. High and intermediate risk HPV types are associated with most squamous intraepithelial lesions and cervical cancers. Testing was performed on specimen [id number] and was resulted on 08/22/2022 1732 EDT by EAGLE, LAB INSTRUMENT RESULTS IN 08/26/2022 15:33 EDT [facility] Genotyping 16 & 18/45 The results for the HPV Genotypes 16 and 18/45 are Negative for the HPV16 RNA and Negative for the HPV18/45 RNA (HPV18/45). Testing was performed on specimen [id number] and was resulted on 08/26/2022 1446 EDT by [facility], LAB INSTRUMENT RESULTS IN 08/26/2022 15:33 EDT [facility] Performing Lab [facility] 08/26/2022 15:33 EDT [facility] Scanned Images 08/26/2022 15:33 T [facility] Papanicolaou smear specimen (specimen) CERVIX UTERI STRUCTURE / Unknown 08/12/2022 17:43 EDT 08/13/2022 12:44 EDT Akua Delaney ND PATHOLOGY ORDERABLES Final Re sult [facility] [address] [place] [address] documented in this encounter Visit Diagnoses Diagnosis Encounter for other general examination documented in this encounter Care Teams Virtual Assistant For Advertisers Relationship Specialty Start Date End Date Akua Delaney ND 194 [facility] [address] [place] [address] PCP - General 02/01/23 documented as of this encounter
--- OUTSIDE RECORDS SUMMARY | 2024-05-06 01:16 | XMS_ITS | Encounter Summary ---
Author Organization [facility] Address [address] [place] [address] Care Team Providers Care Barrel Rib Matting Machine Operator Name Role Phone Akua Delaney EMMY Primary Care Provider [phone] Encounter Details Date Type Department Care Team (Late st Contact Info) Description 11/08/2022 Lab Requisition [facility] Pathology & Laboratory Medicine - [address] [address] Outr Resulting Lab, Provider Social History Tobacco Use Types Packs/Day Years [...] Procedure Name Priority Date/Time Associated Diagnosis Comments VITAMIN D (25,OH) Routine 11/08/2022 11: 15 EDT PTH INTACT Routine 11/08/2022 11:15 EDT documented in this encounter Results * (ABNORMAL) VITAMIN D (25,OH) (11/08/2022 11:15 EDT) 25OH Vitamin D Tot 28(L) 30 - 100 ng/mL 11/10/2022 11:51 EDT [facility] Comment: Vitamin D 25,OH Interpretive Ranges: Deficiency: ??<10.0 ng/mL Insufficiency: ??10.0 - 30.0 ng/mL Sufficiency: ??30.0 - 100.0 ng/mL Toxicity: ??>100.0 ng/mL Blood VENOUS BLOOD / Unknown 11/08/2022 11:15 EDT 11/09/2022 16:33 EDT us Provider Outr Resulting Lab CHEMISTRY & BLOOD GA S ORDERABLES Final Result Performing Organization Address [facility] Co de Phone Number [facility] [address] [place] [address] * PTH INTACT (11/08/2022 11:15 EDT) Intact PTH 67 19 - 88 pg/mL 11/10/2022 9:38 EDT [facility] Blood VENOUS BLOOD / Unknown 11/08/2022 11:15 EDT 11/09/2022 16:33 EDT us Provider Outr Resulting Lab CHEMISTRY & BLOOD GA S ORDERABLES Final Result Performing Organization Address City/[facility] [address]/[facility] Co de Phone Number [facility] [address] [place] [address] documented in this encounter Visit Diagnoses Not on filedocumented in this encounter Care Teams Barrel Rib Matting Machine Operator Relationship Specialty Start Date End Date Akua Delaney ND 194 [facility] [address] [place] [address] PCP - General 02/01/23 documented as of this encounter
--- OUTSIDE RECORDS SUMMARY | 2024-05-06 01:16 | XMS_ITS | Encounter Summary ---
Author Organization [facility] Address [address] [place] [address] Care Team Providers Care Facility Coordinator Name Role Phone Akua Delaney ND Primary Care Provider [phone] Encounter Details Date Type Department Care Team (Late st Contact Info) Description 02/20/2023 Lab Requisition [facility] Pathology & Laboratory Medicine - [facility] [address] [place] [address] Outr Resulting Lab, Provider Social History [...] Procedure Name Priority Date/Time Associated Diagnosis Comments PTH INTACT Routine 02/20/2023 8:50 EDT DHEA SULFATE Routine 02/20/2023 8:50 EDT documented in this encounter Results * DHEA SULFATE (02/20/2023 8:50 EDT) DHEA Sulfate 143 56 - 283 ug/dL 02/23/2023 9:52 EDT [facility] Blood VENOUS BLOOD / Unknown 02/20/2023 8:50 EDT 02/20/2023 22:16 EDT us Provider Outr Resulting Lab CHEMISTRY & BLOOD GA S ORDERABLES Final Result [facility] [address] [place] [address] * PTH INTACT (02/20/2023 8:50 EDT) Intact PTH 27 19 - 88 pg/mL 02/23/2023 9:42 EDT [facility] Blood VENOUS BLOOD / Unknown 02/20/2023 8:50 EDT 02/20/2023 22:16 EDT us Provider Outr Resulting Lab CHEMISTRY & BLOOD GA S ORDERABLES Final Result [facility] [address] [place] [address] documented in this encounter Visit Diagnoses Not on filedocumented in this encounter Care Teams Facility Coordinator Relationship Specialty Start Date End Date Akua Delaney ND 194 [facility] [address] [place] [address] PCP - General 02/01/23 documented as of this encounter
--- OUTSIDE RECORDS SUMMARY | 2024-05-06 01:16 | XMS_ITS | Encounter Summary ---
Author Organization [facility] Address [address] [place] [address] Care Team Providers Care Seconds Handler Name Role Phone Akua Delaney ND Primary Care Provider Encounter Details Date Type Department Care Team (Late st Contact Info) Description 04/28/2023 Lab Requisition [facility] Pathology & Laboratory Medicine - [facility] [address] [place], [place] [id number] Outr Resulting Lab, Provider Social History Tobacco Use Types Packs/Day Years Used Date Smoking Tobacco: Never Assessed Comments Unknown Sex and Gender Information Value Date Recorded Sex Assigned at Not on file Legal Sex Female 18:06 EDT Gender Identity Not on file Sexual Orientation Not on file documented as of this encounter Plan of Treatment Not on file documented as of this encounter Visit Diagnoses Not on filedocumented in this encounter Care Teams Seconds Handler Relationship Specialty Start Date End Date Akua Delaney ND 194 [facility] [address] [place] [address] PCP - General 02/01/23 documented as of this encounter
--- OUTSIDE RECORDS SUMMARY | 2024-05-06 01:16 | XMS_ITS | Encounter Summary ---
Author Organization [facility] Address [address] [place] [address] Care Team Providers Care Clothes Drier Repairer Name Role Phone Akua Delaney EMMY Primary Care Provider Encounter Details Date Type Department Care Team (Late st Contact Info) Description 11/10/2023 Lab Requisition [facility] Pathology & Laboratory Medicine - [facility] [address] [place] [address] Outr Resulting Lab, Provider Social [...] Procedure Name Priority Date/Time Associated Diagnosis Comments HOLD SST Today 11/10/2023 12:00 EDT HIGH SENSITIVITY C-REACTIVE PROTEIN (CARDIOVASCULAR DISEASE) Today 11/10/2023 12:00 EDT T3 FREE Today 11/10/2023 12:00 EDT documented in this encounter Results * HOLD SST (11/10/2023 12:00 EDT) Hold Hold 11/10/2023 23:31 EDT [facility] Blood VENOUS BLOOD / Unknown 11/10/2023 12:00 EDT 11/10/2023 22:22 EDT us Provider Outr Resulting Lab LAB INFO SERVICE AND SUPPORT & PHONE RESULT Final Result [facility] [address] [place], [place] [address] * T3 FREE (11/10/2023 12:00 EDT) Pathologist [facility] T3, Free 3.3 2.8 - 5.3 pg/mL 11/10/2023 22:59 EDT [facility] Blood VENOUS BLOOD / Unknown 11/10/2023 12:00 EDT 11/10/2023 22:10 EDT us Provider Outr Resulting Lab CHEMISTRY & BLOOD GA S ORDERABLES Final Result Performing Organization Address City/[facility] Co de Phone Number [facility] [address] [place] [address] * HIGH SENSITIVITY C-REACTIVE PROTEIN (CARDIOVASCULAR DISEASE) (11/10/2023 12:00 EDT) [facility] High Sensitivity CRP 0.81 See Note mg/L 11/10/2023 22:41 EDT [facility] Comment: Reference Range: ??Low Risk: ? <1.0 mg/L ??Average Risk: ?? 1.0 - 3.0 mg/L ??High Risk: ?>3.0 mg/L ??Indeterminate*: >10.0 mg/L ??*May be an indication of another source of inflammation or infection Blood VENOUS BLOOD / Unknown 11/10/2023 12:00 EDT 11/10/2023 22:10 EDT us Provider Outr Resulting Lab CHEMISTRY & BLOOD GA S ORDERABLES Final Result Performing Organization Address City/State/[facility] Co de Phone Number [facility] [address] [place] [address] documented in this encounter Visit Diagnoses Not on filedocumented in this encounter Care Teams Clothes Drier Repairer Relationship Specialty Start Date End Date Akua Delaney ND [address] [id number] PCP - General 02/01/23 documented as of this encounter
[2024-05-06] MEDS: Normal Saline Flush 10 ML SYR IVP (13:02)
[2024-05-06 13:06] LABS: Abs Immature Grans 0.01 10^3/uL (0.0-0.06); Absolute Basophil Count 0.02 10^3/uL (0.0-0.2); Absolute Eosinophil Count 0.05 10^3/uL (0.0-0.7); Absolute Lymphocyte Count 1.54 10^3/uL (1.2-3.4); Absolute Monocyte Count 0.34 10^3/uL (0.1-0.8); Absolute Neutrophil Count 2.52 10^3/uL (1.2-6.7); Basophils % 0.4 %; Eosinophils % 1.1 %; HCT 33.3 % (36.0-46.0); HGB 11.6 g/dL (11.2-15.7); Immature Grans % 0.2 %; Lymphocytes % 34.4 %; MCH 32.5 pg (27.0-33.0); MCHC 34.8 % (32.0-36.0); MCV 93 fL (80-95); Monocytes % 7.6 %; Neutrophils % 56.3 %; Platelet Count 174 10^3/uL (130-400); RBC 3.57 10^6/uL (3.93-5.22); RDW 12.9 % (11.7-14.6); RDW-SD 44.2 fL; WBC 4.48 10^3/uL (4.4-10.8)
[2024-05-06 13:17] LABS: ALT 18 U/L (14-59); AST 15 U/L (15-37); Albumin 3.4 g/dL (3.4-5.0); Alkaline Phosphatase 52 U/L (46-116); Anion Gap 4.9 mmol/L (3-11); BUN 7 mg/dL (7-18); Bilirubin, Total 0.29 mg/dL (0.2-1.0); CO2 30.1 mmol/L (21.0-32.0); CREATININE 0.8 mg/dL (0.55-1.02); Calcium 8.9 mg/dL (8.5-10.1); Chloride 104 mmol/L (98-107); Estimated GFR 89.15 (mL/min/1.73m2); Glucose 91 mg/dL (74-106); Potassium 3.9 mmol/L (3.5-5.1); Sodium 139 mmol/L (136-145)
== END 2024-06-03 23:59 | disposition home or self-care (01) ==
LOC: INF 01:14
PROVIDERS: Nurse Practitioner Family; PCP Naturopath; Visit Provider Internal Medicine Hematology & Oncology
DX: C50.919 Malignant neoplasm of unspecified site of unspecified female breast (principal)
CPT/HCPCS: 36591; 80053; 85025